=== PATIENT | female | born 1980 | race African-American/Black ===

== ENCOUNTER 2016-11-08 11:14 | Emergency (ER) | payer SELFPAY ==
[~2016-11-08] VITALS: Ht 157.5 cm; Wt 100.0 kg
[~2016-11-08 11:14] MED LIST: DESE1CRE TOP; FERR325T PO; NAPR-576 PO
[2016-11-08 11:15] VITALS: BP 145/67; PULSE 98; RESP 16; TEMP 97.9; O2SAT 98
--- NOTE | 2016-11-08 11:38 | PD ---
HPI Chief Complaint: Anxiety Time Seen by Provider: 11:33 Travel History International Travel<30 days: No Contact w/Intl Traveler<30days: No Traveled to known affect area: No History of Present Illness HPI 36-year-old Afro-[place] female presents the emergency department with multiple complaints including increased anxiety due to her mother's recent diagnosis of cancer, as well as ongoing abdominal discomfort and nausea and vomiting which is worse with eating over the past several weeks. Patient also states her last menstrual period was in September, and she is not sure if the lack of menstruation is due to stress or some other reason. She denies urinary symptoms, or vaginal discharge. She has never had abdominal surgery except for . As far she knows she still has her gallbladder and appendix. Patient is allergic to bananas, honeydew, cantaloupe, and watermelon. PFSH Past Medical History Arthritis: No Autoimmune Disease: No Blood Disorders: No Anxiety: No Depression: No Heart Rhythm Problems: No Cancer: No Cardiovascular Problems: Yes (slight murmur) High Cholesterol: No Chemotherapy: No Chest Pain: No Congestive Heart Failure: No COPD: Yes (CHRONIC BRONCHITIS) Cerebrovascular Accident: No Diabetes: No Diminished Hearing: No Endocrine: No GERD: No Glaucoma: No Genitourinary: No Headaches: No Hepatitis: No Hiatal Hernia: No Hypertension: No Immune Disorder: No Kidney Stones: Yes Musculoskeletal: No Neurologic: No Psychiatric: No Reproductive: No Respiratory: Yes Migraines: No Myocardial Infarction: No Radiation Therapy: No Renal Failure: No Seizures: No Sickle Cell Disease: No Sleep Apnea: No Thyroid Disease: No Ulcer: No PNEUMOCCOCAL Vaccine (Year): 2 ?: Unknown LMP: 09/2015 Menopausal: No : 4 Para: 2 Miscarriage: 2 : 0 Past Surgical History Abdominal Surgery: No AICD: No Appendectomy: No Arteriovenous Shunt: No Cardiac Surgery: No Section: Yes (X3) Cholecystectomy: No Ear Surgery: No Endocrine Surgery: No Eye Surgery: No Genitourinary Surgery: No Gynecologic Surgery: Yes Insulin Pump: No Joint Replacement: No Oral Surgery: No Pacemaker: No Thoracic Surgery: No Other Surgery: No Social History Alcohol Use: No Tobacco Use: No Substance Use: No Allergies-Medications (Allergen,Severity, Reaction): Coded Allergies: Banana (Verified Allergy, Severe, HIVES, THROAT SWELLS, 11/08/16) Watermelon (Verified Allergy, Severe, THROAT SWELLS, 11/08/16) Uncoded Allergies: HONEYDEW AND CANTELOUPE (Allergy, Severe, HIVES, THROAT SWELLS, 08/09/08) Reported Meds & Prescriptions Reported Meds & Active Scripts Active Zofran Odt (Ondansetron Odt) 4 Mg Tab 4 Mg SL Q6HR PRN Plus Iron 29-1 mg ( Vit-Iron Carbonyl) 1 Tab Tab 1 Tab PO DAILY Iron (Ferrous Sulfate) 325 Mg Tab 325 Mg PO BID Naproxen 500 Mg Tab 500 Mg PO BID PRN Clotrimazole 1 % Cre 1 Applic TOP BID 14 Days APPLY TO: Review of Systems Except as stated in HPI: all other systems reviewed are Neg General / Constitutional: No: Fever Eyes: No: Visual changes HENT: No: Headaches Cardiovascular: No: Chest Pain or Discomfort Respiratory: No: Shortness of Breath Gastrointestinal: Positive: Nausea, Vomiting, Abdominal Pain Genitourinary: Positive: Other (LMP September), No: Dysuria Musculoskeletal: No: Pain Skin: No Rash Neurologic: No: Weakness Psychiatric: Positive: Anxiety, No: Depression, Suicidal Ideations, Disorder of Thought, Mood Disorder, Substance Abuse Endocrine: No: Polydipsia Hematologic/Lymphatic: No: Easy Bruising Physical Exam Narrative GENERAL: Morbidly obese patient in mild distress. SKIN: Warm and dry. Normal color. Normal turgor. HEAD: Atraumatic. Normocephalic. EYES: Pupils equal and round. No scleral icterus. No injection or drainage. ENT: No nasal bleeding or discharge. Mucous membranes pink and moist. TMs are clear bilaterally. Pharynx is clear. Airway is patent. NECK: Trachea midline. Supple nontender. CARDIOVASCULAR: Regular rate and rhythm. No murmurs gallops or rubs. RESPIRATORY: No accessory muscle use. Clear to auscultation. Breath sounds equal bilaterally. GASTROINTESTINAL: Abdomen soft, right upper quadrant tenderness, nondistended. Hepatic and splenic margins not palpable. No guarding. No rebound. No CVA tenderness. MUSCULOSKELETAL: Extremities without clubbing, cyanosis, or edema. No obvious deformities. NEUROLOGICAL: Awake and alert. No obvious cranial nerve deficits. Motor grossly within normal limits. Five out of 5 muscle strength in the arms and legs. Normal speech. PSYCHIATRIC: Appropriate mood and affect; insight and judgment normal. Data Data Last Documented VS Vital Signs Date Time Temp Pulse Resp B/P Pulse Ox O2 Delivery O2 Flow Rate FiO2 11/08/16 11:15 97.9 98 16 145/67 98 Orders Complete Blood Count With Diff (11/08/16 11:38) Comprehensive Metabolic Panel (11/08/16 11:38) Lipase (11/08/16 11:38) Urinalysis - C+S If Indicated (11/08/16 11:38) Us Abdomen Gallbladder (11/08/16 ) Iv Access Insert/Monitor (11/08/16 11:38) Ecg Monitoring (11/08/16 11:38) Oximetry (11/08/16 11:38) NPO (11/08/16 11:38) Sodium Chloride 0.9% Flush (Ns Flush) (11/08/16 11:45) Ed Urine Pregnancytest Poc (11/08/16 11:38) Ondansetron Odt (Zofran Odt) (11/08/16 11:45) Hydroxyzine Pamoate (Vistaril) (11/08/16 11:45) Labs Laboratory Tests Test 11/08/16 11/08/16 12:37 12:42 Urine Color YELLOW Urine Turbidity HAZY Urine pH 6.0 Urine Specific Craig 1.018 Urine Protein NEG mg/dL Urine Glucose (UA) NEG mg/dL Urine Ketones NEG mg/dL Urine Occult Blood NEG Urine Nitrite NEG Urine Bilirubin NEG Urine Urobilinogen LESS THAN 2.0 MG/DL Urine Leukocyte Esterase TRACE Urine RBC 2 /hpf Urine WBC 1 /hpf Urine Squamous Epithelial 5 /hpf Cells Urine Mucus FEW /lpf Microscopic Urinalysis Comment CULT NOT INDICATED White Blood Count 10.4 TH/MM3 Red Blood Count 4.07 MIL/MM3 Hemoglobin 10.0 GM/DL Hematocrit 30.9 % Mean Corpuscular Volume 76.1 FL Mean Corpuscular Hemoglobin 24.5 PG Mean Corpuscular Hemoglobin 32.2 % Concent Red Cell Distribution Width 17.8 % Platelet Count 458 TH/MM3 Mean Platelet Volume 8.3 FL Neutrophils (%) (Auto) 63.0 % Lymphocytes (%) (Auto) 27.9 % Monocytes (%) (Auto) 5.4 % Eosinophils (%) (Auto) 3.4 % Basophils (%) (Auto) 0.3 % Neutrophils # (Auto) 6.5 TH/MM3 Lymphocytes # (Auto) 2.9 TH/MM3 Monocytes # (Auto) 0.6 TH/MM3 Eosinophils # (Auto) 0.4 TH/MM3 Basophils # (Auto) 0.0 TH/MM3 CBC Comment AUTO DIFF Differential Comment AUTO DIFF CONFIRMED Platelet Estimate HIGH Platelet Morphology Comment ENLARGED Sodium Level 136 MEQ/L Potassium Level 3.9 MEQ/L Chloride Level 104 MEQ/L Carbon Dioxide Level 24.2 MEQ/L Anion Gap 8 MEQ/L Blood Urea Nitrogen 6 MG/DL Creatinine 0.56 MG/DL Estimat Glomerular Filtration 148 ML/MIN Rate Random Glucose 89 MG/DL Calcium Level 8.7 MG/DL Total Bilirubin 0.3 MG/DL Aspartate Amino Transf 5 U/L (AST/SGOT) Alanine Aminotransferase 13 U/L (ALT/SGPT) Alkaline Phosphatase 58 U/L Total Protein 8.5 GM/DL Albumin 3.3 GM/DL Lipase 79 U/L [facility] Medical Decision Making Medical Screen Exam Complete: Yes Emergency Medical Condition: Yes Differential Diagnosis Anxiety secondary to light stressors. Right upper quadrant tenderness. Nausea and vomiting with eating. Possible gallbladder disease. Narrative Course Patient is medically stable at time of exam. Labs ordered including CBC, CMP, lipase, urinalysis, urine . Ultrasound of the gallbladder is ordered. Patient is given 4 mg Zofran by mouth as well as 25 mg Vistaril by mouth. Patient's urine test is positive. 1250 hrs. patient's ultrasound is still pending. Labs are pending. Labs are within normal limits. Ultrasound shows no sign of gallbladder disease. Patient will be discharged home with instructions to follow with obstetrics. Patient started on vitamins. Patient given Zofran 4 mg every 6 hours when necessary #15. Patient to return to emergency Department with worsening symptoms as needed. Diagnosis Primary Impression: Qualified Code: Z3A.10 - 10 weeks gestation of Additional Impressions: Nausea & vomiting Qualified Code: R11.2 - Non-intractable vomiting with nausea, unspecified vomiting type Anxiety Referrals: Charisse Christine MD call for appointment [facility] call for appointment Patient Instructions: Acute Nausea and Vomiting (DC), General Instructions Additional Instructions: Labs are within normal limits. Patient's urine test is positive. Ultrasound shows no sign of gallbladder disease. Patient will be discharged home with instructions to follow with obstetrics. Patient started on vitamins. Patient given Zofran 4 mg every 6 hours when necessary #15. Patient to return to emergency Department with worsening symptoms as needed. Med/Other Pt SpecificInfo: Prescription(s) given Scripts Ondansetron Odt (Zofran Odt)4 Mg Tab4 Mg SL Q6HR PRN (Nausea/Vomiting) #15 TAB Prov:Nunu Yo MD 11/08/16 Vit-Iron Carbonyl ( Plus Iron 29-1 mg)1 Tab Tab1 Tab PO DAILY #30 TAB Ref 0 Prov:Nunu Yo MD 11/08/16 Disposition: 01 DISCHARGE HOME Condition: Stable Hakeem Brewer Nov 08, 2016 11:38
[2016-11-08] MEDS ORDERED: SODIUM CHLORIDE 0.9% FLUSH 5 ML FLUSH IVF PRN (11:45)
[2016-11-08] MEDS ORDERED: ONDANSETRON ODT 4 MG TAB PO ONE (11:45)
[2016-11-08] MEDS ORDERED: hydrOXYzine PAMOATE 25 MG CAP PO ONE (11:45)
[2016-11-08 13:06] LABS: AUTOMATED NEUTROPHIL # 6.5 TH/MM3 (1.8-7.7); BASOPHIL % 0.3 % (0.0-2.0); EOSINOPHIL # 0.4 TH/MM3 (0-0.4); EOSINOPHIL % 3.4 % (0.0-4.0); HEMATOCRIT 30.9 % (35.0-46.0); LYMPH % 27.9 % (9.0-44.0); LYMPHOCYTE # 2.9 TH/MM3 (1.0-4.8); MEAN CELL VOLUME 76.1 FL (80.0-100.0); MEAN CORPUSCULAR HEMOGLOBIN 24.5 PG (27.0-34.0); MEAN CORPUSCULAR HGB CONC 32.2 % (32.0-36.0); MONO % 5.4 % (0.0-8.0); PLATELET COUNT 458 TH/MM3 (150-450); RED BLOOD COUNT 4.07 MIL/MM3 (4.00-5.30); RED CELL DISTRIBUTION WIDTH 17.8 % (11.6-17.2); WHITE BLOOD COUNT 10.4 TH/MM3 (4.0-11.0)
[2016-11-08 13:14] LABS: BLOOD, URINE NEG (NEG); COMMENT (UR) CULT NOT INDICATED; CULTURE IF INDICATED CULT NOT INDICATED; GLUCOSE,URINE NEG (NEG); KETONE, URINE NEG (NEG); MUCUS URINE FEW /lpf (OCC); NITRITE,URINE NEG (NEG); SQUAMOUS EPITHELIAL CELL URINE 5 /hpf (0-5); URINE COLOR YELLOW (YELLW/STRAW)
[2016-11-08 13:16] LABS: HEMO FLAGS AUTO DIFF
[2016-11-08 13:27] LABS: ANION GAP 8 MEQ/L (5-15); AST (GOT) 5 U/L (15-37); BICARBONATE 24.2 MEQ/L (21.0-32.0); BLOOD UREA NITROGEN 6 MG/DL (7-18); CHLORIDE 104 MEQ/L (98-107); GLOMERULAR FILTRATION RATE 148 ML/MIN (>89); POTASSIUM 3.9 MEQ/L (3.5-5.1); SODIUM (NA) 136 MEQ/L (136-145)
[2016-11-08 13:30] LABS: ALKALINE PHOSPHATASE 58 U/L (45-117); ALT (GPT) 13 U/L (10-53); TOTAL BILIRUBIN ADULT 0.3 MG/DL (0.2-1.0)
--- NOTE | 2016-11-08 13:41 | RADRPT ---
EXAM DATE/TIME: 11/08/2016 12:10 [facility] COMPARISON: No previous studies available for comparison. INDICATIONS : Right upper quadrant pain. MEDICAL HISTORY : Heart murmur. Chronic bronchitis. Renal calculi. SURGICAL HISTORY : section. ENCOUNTER: Initial ACUITY: 1 week PAIN SCORE: 5/10 LOCATION: Right upper quadrant MEASUREMENTS: LIVER: 17.0 cm length COMMON DUCT: 3 mm RIGHT KIDNEY: 12.4 x 5.8 x 4.7 cm FINDINGS: LIVER: Normal echotexture without focal lesion or ductal dilatation. COMMON DUCT: No intraluminal mass or stone visualized. GALLBLADDER: Contains no stones, demonstrates no wall thickening or pericholecystic fluid. PANCREAS: The visualized portions are within normal limits. RIGHT KIDNEY: No evidence of hydronephrosis, stone, or mass. CONCLUSION: 1. Negative for gallstones or biliary ductal dilatation. Liver mildly prominent in size at 17 cm. No free fluid. No right-sided hydronephrosis. Marquise Betts MD on November 08, 2016 at 13:39 Board Certified Radiologist. This report was verified electronically.
[2016-11-08 13:51] LABS: PLATELET ESTIMATE SMEAR HIGH (NORMAL); PLATELET MORPHOLOGY ENLARGED (NORMAL); SCAN/DIFF AUTO DIFF CONFIRMED
[2016-11-08] MEDS ORDERED: ZOFR4TAB3 SL (13:52)
[2016-11-08] MEDS ORDERED: PREN29TA PO (13:52)
== END 2016-11-08 14:29 | disposition home or self-care (01) ==
LOC: NETRI 11:14
DX: F41.9 Anxiety disorder, unspecified (principal); R11.2 Nausea with vomiting, unspecified; Z33.1 Pregnant state, incidental
CPT/HCPCS: 76705; 80053; 81001; 83690; 84703; 85025; 99284; Q0177